=== PATIENT | female | born 1995 | race Caucasian/White ===

== ENCOUNTER 2017-02-03 02:16 | Emergency (ER) | payer MEDICAID ==
--- NOTE | 2017-02-03 04:41 | ER Document Report ---
ED General - General Chief Complaint: Chest Pain Stated Complaint: CHEST PAIN/DIFFICULTY BREATHING Time Seen by Provider: 02/03/17 04:32 Notes: Patient is a 21-year-old female that comes emergency department for chief complaint of pain in her chest, she states the pain is in the center of her chest and also down to the upper part of her abdomen. Patient states that she had this starting 3 days ago but tonight it became much worse while at work. Patient states that she feels the pain is worse when she takes a deep breath. She denies nausea, vomiting, injury, fever, cough. Patient denies smoking, recent travel, she is not currently on oral contraceptive, she denies personal or family history of blood clot. She denies lower extremity swelling. She denies any past medical history other than secondhand smoke. TRAVEL OUTSIDE OF THE [place] IN LAST 30 DAYS: No - Related Data Allergies/Adverse Reactions: No Known Allergies Allergy (Verified 04/20/15 11:33) Past Medical History - General Information source: Patient - Social History Smoking Status: Never Smoker Frequency of alcohol use: None Drug Abuse: None Lives with: Family Family History: Reviewed & Not Pertinent Patient has suicidal ideation: No Patient has homicidal ideation: No Neurological Medical History: Reports: Hx Migraine Renal/ Medical History: Denies: Hx Peritoneal Dialysis Past Surgical History: Reports: Hx Tonsillectomy Review of Systems - Review of Systems Constitutional: No symptoms reported EENT: No symptoms reported Cardiovascular: See HPI Respiratory: See HPI Gastrointestinal: See HPI Genitourinary: No symptoms reported Female Genitourinary: No symptoms reported Musculoskeletal: No symptoms reported Skin: No symptoms reported Hematologic/Lymphatic: No symptoms reported Neurological/Psychological: No symptoms reported Physical Exam - Vital signs Vitals: Temp Pulse Resp BP Pulse Ox 97.9 F 79 18 121/81 99 02/03/17 02:36 02/03/17 02:36 02/03/17 02:36 02/03/17 02:36 02/03/17 02:36 Interpretation: Normal - General General appearance: Appears well, Alert In distress: None - HEENT Head: Normocephalic, Atraumatic Eyes: Normal Pupils: PERRL - Respiratory Respiratory status: No respiratory distress Chest status: Tender - Tender mainly over the left sternal border, very mild generalized tenderness otherwise, no erythema or signs of injury Breath sounds: Normal Chest palpation: Normal - Cardiovascular Rhythm: Regular. No: Tachycardia Heart sounds: Normal auscultation, S1 appreciated, S2 appreciated Murmur: No - Abdominal Inspection: Normal Distension: No distension Bowel sounds: Normal Tenderness: Tender - Very minimal tenderness in the epigastric area on exam, otherwise completely benign Organomegaly: No organomegaly - Back Back: Normal, Nontender - Extremities General upper extremity: Normal inspection, Nontender, Normal color, Normal ROM , Normal temperature General lower extremity: Normal inspection, Nontender, Normal color, Normal ROM , Normal temperature, Normal weight bearing. No: Vandana's sign - Neurological Neuro grossly intact: Yes Cognition: Normal Orientation: AAOx4 [place] Coma Scale Eye Opening: Spontaneous [employer] Coma Scale Verbal: Oriented Mil Coma Scale Motor: Obeys Commands [employer] Coma Scale Total: 15 Speech: Normal Motor strength normal: LUE, RUE, LLE, RLE Sensory: Normal - Psychological Associated symptoms: Normal affect, Normal mood - Skin Skin Temperature: Warm Skin Moisture: Dry Skin Color: Normal Course - Re-evaluation Re-evalutation: Workup is completely unremarkable including normal chest x-ray, unremarkable EKG with sinus rhythm and no arrhythmia or ischemic changes, CBC, chemistry are unremarkable, d-dimer is normal. Patient with what appears to be costochondritis with reproducible pain along the sternal border on examination. Results discussed with patient and mother in detail, discussed recommendations , primary care follow-up, return precautions, they both state understanding and agreement. - Vital Signs Vital signs: Temp Pulse Resp BP Pulse Ox 97.9 F 79 21 H 104/69 99 02/03/17 02:36 02/03/17 02:36 02/03/17 06:18 02/03/17 06:16 02/03/17 06:18 - Laboratory Result Diagrams: 02/03/17 04:50 02/03/17 04:50 Discharge - Discharge Clinical Impression: Chest pain Qualifiers: Chest pain type: unspecified Qualified Code(s): R07.9 - Chest pain, unspecified Condition: Stable Disposition: HOME, SELF-CARE Additional Instructions: Workup is normal. Examination and symptoms are most suggestive of costochondritis. Take the prescribed medications as directed. Take Tylenol in addition to this for pain. Take the Zantac to avoid stomach upset. Follow-up with primary care. Return to emergency department for any concerning symptoms - fever, vomiting, difficulty breathing, etc. Costochondritis Your chest pain is coming from the rib cartilages in the chest wall. This is often caused by subtle straining of the ribs near the breastbone. The strain can occur from a mild injury, coughing or sneezing with a "cold," vigorous vomiting, or even from rib compression while sleeping. Often the pain doesn't begin until a couple of days after the strain. Persons with arthritis are especially prone to this type of pain, due to inflammation of the cartilage joints near the breast bone. But often, there is no clear reason why it happens. Rest from strenuous physical activity. This kind of chest pain is usually made worse by movement of the chest. Depending on the symptoms, we may prescribe medicine for pain and inflammation. Apply gentle warmth to the painful area for 15 minutes every hour or two. You should call contact the doctor immediately if things change. Further evaluation is needed if you develop a fever or cough, if the nature of the pain changes, or if you become short of breath. Prescriptions: Methylprednisolone [Medrol Dosepack (4 mg/Tab) 21 Tab/Dosepak] 4 mg PO ASDIR PRN #21 tab.ds.pk PRN Reason: Ranitidine HCl [Zantac] 150 mg PO DAILY #20 tablet Forms: Return to Work
[2017-02-03 04:59] LABS: ABSOLUTE LYMPHOCYTES (AUTO) 2.2 10^3/uL (0.5-4.7); ABSOLUTE MONOCYTES (AUTO) 0.5 10^3/uL (0.1-1.4); ABSOLUTE NEUT (AUTO) 3.5 10^3/uL (1.7-8.2); BASOPHILS % (AUTO) 0.4 % (0-2); EOSINOPHILS % (AUTO) 0.8 % (0-6); HEMATOCRIT 42.6 % (36.0-47.0); HEMOGLOBIN 13.8 g/dL (12.0-15.5); HGB HCT DIFFERENCE -1.2; LYMPHOCYTES % (AUTO) 35.3 % (13-45); MEAN CORPUSCULAR HEMOGLOBIN 28.2 pg (27.0-33.4); MEAN CORPUSCULAR HGB CONC 32.5 g/dL (32.0-36.0); MEAN CORPUSCULAR VOLUME 87 fl (80-97); RED BLOOD COUNT 4.91 10^6/uL (3.72-5.28); RED CELL DISTRIBUTION WIDTH 13.4 % (11.5-14.0); SEGMENTED NEUTROPHILS % (AUTO) 55.5 % (42-78); WHITE BLOOD COUNT 6.3 10^3/uL (4.0-10.5)
[2017-02-03 05:11] LABS: ALANINE AMINOTRANSFERASE 26 U/L (9-52); ALBUMIN 4.6 g/dL (3.5-5.0); ALKALINE PHOSPHATASE 71 U/L (38-126); ANION GAP 14 (5-19); ASPARTATE AMINO TRANSFERASE 16 U/L (14-36); BILIRUBIN,DIRECT 0.4 mg/dL (0.0-0.4); BILIRUBIN,TOTAL 0.7 mg/dL (0.2-1.3); BLOOD UREA NITROGEN 11 mg/dL (7-20); CALCIUM 9.8 mg/dL (8.4-10.2); CARBON DIOXIDE 24 mmol/L (22-30); CHLORIDE 104 mmol/L (98-107); CREATININE RESULT 0.57 mg/dL (0.52-1.25); GLUCOSE 84 mg/dL (75-110); LIPASE 118.8 U/L (23-300); POTASSIUM 4.3 mmol/L (3.6-5.0); SODIUM 141.6 mmol/L (137-145); TOTAL PROTEIN 7.4 g/dL (6.3-8.2)
[2017-02-03 06:22] VITALS: BP 104/69
--- NOTE | 2017-02-03 10:38 | EKG REPORT ---
SEVERITY:- NORMAL ECG - SINUS RHYTHM : Confirmed by: Eloina Coyle MD 03-Feb-2017 10:37:21
== END 2017-02-03 06:47 | disposition home or self-care (01) ==
LOC: ER 02:16
DX: R07.9 Chest pain, unspecified (principal); R10.10 Upper abdominal pain, unspecified; R10.816 Epigastric abdominal tenderness
CPT/HCPCS: 36415; 71020; 80053; 83690; 84703; 85025; 85379; 93005; 93010; 99285

== ENCOUNTER 2017-06-21 04:48 | Emergency (ER) | payer SELFPAY ==
[2017-06-21 06:13] LABS: APPEARANCE,URINE SLIGHTLY-CLOUDY; BILIRUBIN,URINE NEGATIVE (NEGATIVE); GLUCOSE, URINE NEGATIVE (NEGATIVE); KETONES,URINE NEGATIVE (NEGATIVE); LEUKOCYTE ESTERASE,URINE NEGATIVE (NEGATIVE); NITRITE,URINE NEGATIVE (NEGATIVE); PROTEIN,URINE NEGATIVE (NEGATIVE); URINE SPECIFIC GRAVITY 1.008; UROBILINOGEN,URINE NEGATIVE mg/dL (<2.0)
--- NOTE | 2017-06-21 06:25 | ER Document Report ---
ED General - General Chief Complaint: Abdominal Pain Stated Complaint: ABDOMINAL PAIN Time Seen by Provider: 06/21/17 06:13 TRAVEL OUTSIDE OF THE [place] IN LAST 30 DAYS: No - HPI Patient complains to provider of: Lower abdominal pain Notes: Patient coming in with lower abdominal pain states onset status post intercourse around midnight. Patient denies any unusual activity during intercourse states no toys states was not having "rough sex". Patient states pain started afterwards patient states pain mostly in the lower abdomen bilateral adnexal and suprapubic region also has midline epigastric tenderness. Patient states she has never had this pain before patient does state some mild nausea no vomiting last bowel movement was yesterday normal no diarrhea no fevers or chills. Patient is resting comfortably upon my evaluation. - Related Data Allergies/Adverse Reactions: No Known Allergies Allergy (Verified 04/20/15 11:33) Past Medical History - Social History Smoking Status: Never Smoker Chew tobacco use (# tins/day): No Frequency of alcohol use: None Drug Abuse: None Family History: Reviewed & Not Pertinent Patient has suicidal ideation: No Patient has homicidal ideation: No Neurological Medical History: Reports: Hx Migraine Renal/ Medical History: Denies: Hx Peritoneal Dialysis Past Surgical History: Reports: Hx Tonsillectomy Review of Systems - Review of Systems Constitutional: No symptoms reported EENT: No symptoms reported Cardiovascular: No symptoms reported Respiratory: No symptoms reported Gastrointestinal: Abdominal pain Genitourinary: No symptoms reported Female Genitourinary: No symptoms reported Musculoskeletal: No symptoms reported Skin: No symptoms reported Hematologic/Lymphatic: No symptoms reported Neurological/Psychological: No symptoms reported -: Yes All other systems reviewed and negative Physical Exam - Vital signs Vitals: Temp Pulse Resp BP Pulse Ox 97.9 F 103 H 16 130/74 H 99 06/21/17 05:00 06/21/17 05:00 06/21/17 05:00 06/21/17 05:00 06/21/17 05:00 Interpretation: Normal - General General appearance: Appears well, Alert - HEENT Head: Normocephalic, Atraumatic Eyes: Normal Pupils: PERRL - Respiratory Respiratory status: No respiratory distress Chest status: Nontender Breath sounds: Normal Chest palpation: Normal - Cardiovascular Rhythm: Regular Heart sounds: Normal auscultation Murmur: No - Abdominal Inspection: Normal Distension: No distension Bowel sounds: Normal Tenderness: Tender - Mild tenderness to palpation in the epigastric and bilateral adnexa. Mild tenderness to palpation to the region. No guarding or rebound no signs of surgical abdomen Organomegaly: No organomegaly - Back Back: Normal, Nontender - Extremities General upper extremity: Normal inspection, Nontender, Normal color, Normal ROM , Normal temperature General lower extremity: Normal inspection, Nontender, Normal color, Normal ROM , Normal temperature, Normal weight bearing. No: Vandana's sign - Neurological Neuro grossly intact: Yes Cognition: Normal Orientation: AAOx4 [place] Coma Scale Eye Opening: Spontaneous [place] Coma Scale Verbal: Oriented Mil Coma Scale Motor: Obeys Commands [place] Coma Scale Total: 15 Speech: Normal Motor strength normal: LUE, RUE, LLE, RLE Sensory: Normal - Psychological Associated symptoms: Normal affect, Normal mood - Skin Skin Temperature: Warm Skin Moisture: Dry Skin Color: Normal Course - Re-evaluation Re-evalutation: 06/21/17 06:24 We will obtain basic lab work and a ultrasound to evaluate the patient's ovaries 06/21/17 08:15 Ultrasound does not show any signs of torsion. This shows cystic structure in the left ovary patient's test is negative except for ectopic at this time. Patient will be discharged home follow-up primary care physician. - Vital Signs Vital signs: Temp Pulse Resp BP Pulse Ox 97.9 F 103 H 16 130/74 H 99 06/21/17 05:00 06/21/17 05:00 06/21/17 05:00 06/21/17 05:00 06/21/17 05:00 - Laboratory Result Diagrams: 06/21/17 06:25 06/21/17 06:25 Laboratory results interpreted by me: 06/21/17 06:25 WBC 11.0 H Discharge - Discharge Clinical Impression: Abdominal pain Qualifiers: Abdominal location: unspecified location Qualified Code(s): R10.9 - Unspecified abdominal pain Ovarian cyst Qualifiers: Laterality: unspecified laterality Qualified Code(s): N83.209 - Unspecified ovarian cyst, unspecified side Condition: Good Disposition: HOME, SELF-CARE Instructions: Abdominal Pain ([facility]), Ovarian Cyst ([facility]), Anti-Inflammatory Medication ([facility]) Additional Instructions: You may take Tylenol and Motrin for your pain control. Your ultrasound today does not show any significant pathology does show that she had a ovarian cyst on your left ovary. It is your job for your ovary to make cyst every month this is highly ovulate. More likely your pain is related to a ruptured ovarian cyst. Please follow-up with your [facility] or primary care physician. Return to ER symptoms worsen. Avoid any sexual intercourse for the next 2-3 days. Prescriptions: Ibuprofen [Motrin 600 Mg Tablet] 600 mg PO TID #30 tablet Forms: Return to Work
[2017-06-21 06:31] LABS: ABSOLUTE BASOPHILS # (AUTO) 0.1 10^3/uL (0.0-0.2); ABSOLUTE EOSINOPHILS # (AUTO) 0.2 10^3/uL (0.0-0.6); ABSOLUTE LYMPHOCYTES (AUTO) 3.2 10^3/uL (0.5-4.7); ABSOLUTE NEUT (AUTO) 6.6 10^3/uL (1.7-8.2); BASOPHILS % (AUTO) 0.5 % (0-2); EOSINOPHILS % (AUTO) 1.4 % (0-6); HEMATOCRIT 37.6 % (36.0-47.0); HEMOGLOBIN 12.8 g/dL (12.0-15.5); HGB HCT DIFFERENCE 0.8; LYMPHOCYTES % (AUTO) 28.7 % (13-45); MEAN CORPUSCULAR HEMOGLOBIN 29.2 pg (27.0-33.4); MEAN CORPUSCULAR VOLUME 86 fl (80-97); MONOCYTES % (AUTO) 9.5 % (3-13); RED BLOOD COUNT 4.36 10^6/uL (3.72-5.28); RED CELL DISTRIBUTION WIDTH 12.8 % (11.5-14.0); SEGMENTED NEUTROPHILS % (AUTO) 59.9 % (42-78)
[2017-06-21 06:45] LABS: ALANINE AMINOTRANSFERASE 32 U/L (9-52); ALBUMIN 4.2 g/dL (3.5-5.0); ALKALINE PHOSPHATASE 58 U/L (38-126); ANION GAP 10 (5-19); ASPARTATE AMINO TRANSFERASE 19 U/L (14-36); BILIRUBIN,DIRECT 0.3 mg/dL (0.0-0.4); BILIRUBIN,TOTAL 0.5 mg/dL (0.2-1.3); BLOOD UREA NITROGEN 10 mg/dL (7-20); CALCIUM 9.6 mg/dL (8.4-10.2); CARBON DIOXIDE 25 mmol/L (22-30); CHLORIDE 106 mmol/L (98-107); CREATININE RESULT 0.58 mg/dL (0.52-1.25); GLUCOSE 81 mg/dL (75-110); SODIUM 140.8 mmol/L (137-145); TOTAL PROTEIN 6.7 g/dL (6.3-8.2)
--- NOTE | 2017-06-21 08:04 | RADIOLOGY REPORT (SQ) ---
EXAM DESCRIPTION: U/S NON OB PEL TV W/DOPPLER CLINICAL HISTORY: 21 years, Female, pain after sex bilateral adnexa COMPARISON: None. TECHNIQUE: A scale, color Doppler and spectral Doppler waveform analysis techniques were all utilized to perform this examination. LIMITATIONS: None. FINDINGS: Pelvic pain. Bilateral adnexal pain. LMP equals 06/06/2017. The uterus measures 7.8 cm to 6.3 cm in greatest sagittal dimension and 4.5 cm in greatest transverse dimension. No myometrial mass lesions. Total sagittal endometrial thickness equals 2.0 cm. No evidence of intrauterine . Cervix measures 2 cm in greatest length. Cervical os appears closed. Right ovary appears normal and measures 3.3 cm x 2.2 cm x 3.2 cm in greatest dimension. There is strong arterial and venous blood flow to the right ovary using color Doppler and spectral waveform analysis techniques respectively. The left ovary measures 4.3 cm x 3.1 cm x 2.7 cm in greatest dimension. There is strong arterial and venous blood flow to the left ovary using color Doppler and spectral Doppler waveform analysis techniques respectively. 3.2 cm x 2.8 cm x 2.7 cm hypoechoic complex probably cystic area in the left ovary. Heterogeneous nonvascular structure adjacent to left ovary measuring 4.6 cm x 5.0 cm x 3.6 cm in greatest dimension. Convincing associated pole. Moderate amount of free pelvic fluid. IMPRESSION: 1. No intrauterine . Ectopic cannot be excluded. 2. Heterogeneous cystic structure in the left ovary. Irregular hypo-vascular structure adjacent the left ovary without evidence of pole. Query positive test to suggest this represents ectopic ? 3. Strong arterial and venous blood flow to both ovaries. No evidence of ovarian torsion. 4. Moderate amount of free pelvic fluid. 2010 [employer]- All Rights Reserved
[2017-06-21 08:55] VITALS: BP 106/68
== END 2017-06-21 08:30 | disposition home or self-care (01) ==
LOC: ER 04:48
DX: N83.202 Unspecified ovarian cyst, left side (principal); R11.0 Nausea; R10.2 Pelvic and perineal pain; R10.816 Epigastric abdominal tenderness
CPT/HCPCS: 36415; 76830; 80053; 81001; 81025; 83690; 85025; 93976; 99284

== ENCOUNTER 2020-09-25 01:57 | Emergency (ER) | payer SELFPAY | END 2020-09-25 03:10 | disposition left against medical advice (07) | LOC: ER 01:57 | DX: Z53.21 Procedure and treatment not carried out due to patient leaving prior to being seen by health care provider (principal) ==